=== PATIENT | female | born 1960 | race Caucasian/White ===

== ENCOUNTER 2019-12-25 10:16 | Observation (INO) ==
[2019-12-25 10:51] LABS: BASO# 0.03 X1000 (0.0-0.2); BASO% 0.5 % (0.0-0.8); EOS# 0.04 X1000 (0.0-0.7); EOS% 0.7 % (0.0-10.0); HEMATOCRIT 39.6 % (37.0-47.0); HEMOGLOBIN 13.6 g/dL (12.0-16.0); LYMPH# 1.53 X1000 (1.2-3.4); LYMPH% 27.2 % (20.5-51.1); MCH 31.6 PG (27-31); MCHC 34.3 g/dL (33-37); MCV 92.1 FL (81-99); MONO# 0.32 X1000 (0.11-0.59); MONO% 5.7 % (1.7-9.3); MPV 10.9 FL (7.4-10.4); NEUT# 3.71 X1000 (1.4-6.5); NEUT% 65.9 % (42.2-75.2); PLT 157 X1000 (130-400); RDW 11.8 % (11.5-14.5); WBC 5.63 X1000 (4.8-10.8)
[2019-12-25 10:56] LABS: URINE SOURCE CLEAN CATCH
[2019-12-25 10:58] LABS: BILIRUBIN URINE NEGATIVE (NEGATIVE); BLOOD URINE NEGATIVE (NEGATIVE); COLOR STRAW; GLUCOSE URINE >1000 mg/dL (NEGATIVE); KETONE URINE NEGATIVE (NEGATIVE); LEUKOCYTES URINE NEGATIVE (NEGATIVE); NITRITE URINE NEGATIVE (NEGATIVE); PH URINE 6.5; PROTEIN URINE NEGATIVE (NEGATIVE); SP GRAVITY URINE 1.032; TURBIDITY URINE CLEAR (CLEAR); UR EPITHELIAL CELLS <10 /HPF (<10); URINE BACTERIA NEGATIVE /HPF; URINE RBC <10 /HPF (<10); URINE WBC <10 /HPF (<10); UROBILINOGEN URINE NORMAL (NORMAL)
[2019-12-25 11:10] LABS: ACETONE SERUM NEGATIVE (NEGATIVE)
[2019-12-25] MEDS ORDERED: NS 1,000 ML IV ONE ×2 (11:11→13:31)
[2019-12-25] MEDS ORDERED: HUMULIN R SUBQ ONE (11:15)
--- NOTE | 2019-12-25 11:19 | PROVIDER DOCUMENTATION ---
HPI-General Adult - General Chief Complaint: High Blood Sugar Stated Complaint: BS HIGH Time Seen by Provider: 12/25/19 10:30 Source: patient, family () Allergies/Adverse Reactions: Patient Allergies Allergy/AdvReac Type Severity Reaction Status Date / Time No Known Allergies Allergy Verified 12/25/19 10:42 Home Medications: Home Medication List Medication Instructions Recorded Confirmed Last Taken Type Bisoprolol [Zebeta] 5 mg PO DAILY 12/25/19 12/25/19 Unknown History Clonazepam 1 tab PO QHS PRN 12/25/19 12/25/19 Unknown History Escitalopram [Lexapro] 10 mg PO DAILY 12/25/19 12/25/19 Unknown History Gabapentin 300 mg PO TID 12/25/19 12/25/19 Unknown History Imipramine Pamoate 75 mg PO DAILY 12/25/19 12/25/19 Unknown History Losartan Potassium 50 mg PO DAILY 12/25/19 12/25/19 Unknown History Simvastatin 20 mg PO DAILY 12/25/19 12/25/19 Unknown History Valacyclovir [Valtrex] 500 mg PO DAILY PRN 12/25/19 12/25/19 Unknown History - History of Present Illness -Gen Adult Nature of Presenting Problems: Patient is a 59yo F who presents, accompanied by , for evaluation of blood sugar. Patient reports she has been experiencing blurred vision over the past 2 weeks and was seen at her [facility] this morning who instructed her to come to ED for evaluation of blood sugar. Patient's states their [id number] has DM and patient went to her house and checked her BG, which read "HIGH." States they immediately came to ED. Patient reports intermittent nausea and fatigue. Denies fever, vomiting, abdominal pain, CP, or SOB. Denies past hx of DM. Location of Pain/Injury: reports: face, generalized Pain Radiation: reports: no radiation Quality of Pain: reports: aching Severity: reports: mild Onset/Duration: reports: other (2 weeks ago) Timing: reports: still present Context/Activities at Onset: reports: none Modifying Factors: improves with: nothing Associated Symptoms: reports: EENT symptoms, fatigue, nausea. denies: back/neck pain, fever/chills, shortness of breath, vomiting Similar Symptoms Previously?: No Recently seen or treated by another doctor?: Yes (seen by Optho this morning) - Diabetes Related Context Context: reports: high blood sugar Review of Systems - Adult - REVIEW OF SYSTEMS - ADULT Constitutional: reports: no symptoms reported. denies: chills, fever Eyes: reports: see HPI, blurred vision. denies: double vision Ears, Nose, Mouth & Throat: reports: no symptoms reported. denies: ear pain, throat pain Cardiovascular: reports: no symptoms reported. denies: chest pain, palpitations Respiratory: reports: no symptoms reported. denies: cough, shortness of breath Gastrointestinal: reports: see HPI, nausea. denies: abdominal pain, diarrhea, vomiting Genitourinary: reports: no symptoms reported Musculoskeletal: reports: no symptoms reported Integumentary: reports: no symptoms reported Neurological: reports: no symptoms reported Psychiatric: reports: no symptoms reported Endocrine: reports: see HPI, increased hunger, increased thirst, polyuria Past History - Adult - PAST MEDICAL HISTORY-ADULT Review of Records: reports: Nursing Assessment Review, Medications Reviewed - IMMUNIZATION STATUS Childhood Immunizations: See Nurse Assessment Flu Vaccine: See Nurse Assessment - FAMILY HISTORY Family History: reviewed, not pertinent Physical Exam-General - PHYSICAL EXAM-ADULT Initial Vital Signs Reviewed: Yes - CONSTITUTIONAL General Appearance: alert, mild distress. negative: lethargic, slow to respond, obtunded - EYES Eyes: PERRL/EOMI, pink conjunctivae. negative: EOM palsy, scleral icterus - HEAD, EARS, NOSE, MOUTH & THROAT HENMT: normocephalic/atraumatic, moist mucous membranes. negative: angioedema - NECK Neck: full range of motion, supple, normal inspection - RESPIRATORY Respiratory: chest non-tender, lungs clear, normal breath sounds, no pleuratic chest pain, no respiratory distress, no accessory muscle use. negative: crackles, rales, rhonchi, stridor, wheezing, retractions, splinting - CARDIOVASCULAR Cardiovascular: regular rate, rhythm - GASTROINTESTINAL (ABDOMEN) Abdominal Exam: normal bowel sounds, non tender, soft. negative: rigid, r ebound, tenderness - MUSCULOSKELETAL Back Exam: normal inspection Extremity: normal range of motion, normal gait - SKIN Integumentary: normal color, warm/dry. negative: cyanosis, jaundice, pallor - NEUROLOGIC Neurologic: grossly normal. negative: abnormal gait, aphasia, EOM palsy - PSYCHIATRIC Psych/Mental Status: normal mood/affect, normal thought content, normal thought process, oriented x 3 Progress - PLAN OF CARE/RESULTS Progress/Plan/Lab Results: Vital Signs - 8 hr 12/25/19 10:19 Temperature 97.8 F Pulse Rate 83 Respiratory Rate 19 Blood Pressure 157/96 O2 Sat by Pulse Oximetry 97 Laboratory Results - last 24 hr 12/25/19 12/25/19 12/25/19 10:35 10:35 10:50 WBC 5.63 RBC 4.30 Hgb 13.6 Hct 39.6 MCV 92.1 MCH 31.6 H MCHC 34.3 RDW Std Deviation 11.8 Plt Count 157 MPV 10.9 H Immature Gran % (Auto) 0.0 Neut % (Auto) 65.9 Lymph % (Auto) 27.2 Porter % (Auto) 5.7 Eos % (Auto) 0.7 Baso % (Auto) 0.5 Immature Gran # (Auto) 0.00 Neut # (Auto) 3.71 Lymph # (Auto) 1.53 Porter # (Auto) 0.32 Eos # (Auto) 0.04 Baso # (Auto) 0.03 POC Glucose Urine Source CLEAN CATCH Urine Color STRAW Urine Turbidity CLEAR Urine pH 6.5 Ur Specific Vici 1.032 Urine Protein NEGATIVE Ur Glucose (Stick) >1000 A Ur Ketones (Stick) NEGATIVE Urine Blood NEGATIVE Urine Nitrite NEGATIVE Urine Bilirubin NEGATIVE Urobilinogen Dipstick NORMAL Urine Leukocytes NEGATIVE Urine WBC (Auto) <10 Urine RBC (Auto) <10 U Epithel Cells (Auto) <10 Urine Bacteria (Auto) NEGATIVE Acetone Level NEGATIVE 12/25/19 11:00 WBC RBC Hgb Hct MCV MCH MCHC RDW Std Deviation Plt Count MPV Immature Gran % (Auto) Neut % (Auto) Lymph % (Auto) Porter % (Auto) Eos % (Auto) Baso % (Auto) Immature Gran # (Auto) Neut # (Auto) Lymph # (Auto) Porter # (Auto) Eos # (Auto) Baso # (Auto) POC Glucose 500 H Urine Source Urine Color Urine Turbidity Urine pH Ur Specific Vici Urine Protein Ur Glucose (Stick) Ur Ketones (Stick) Urine Blood Urine Nitrite Urine Bilirubin Urobilinogen Dipstick Urine Leukocytes Urine WBC (Auto) Urine RBC (Auto) U Epithel Cells (Auto) Urine Bacteria (Auto) Acetone Level Orders Category Date Time Status FSBS [Finger Stick Blood Sugar (ED)] DIRECTED Care 12/25/19 10:30 Active FSBS/Accucheck Result Q1H Care 12/25/19 11:16 Ordered Saline Loc NOW Care 12/25/19 10:30 Active Visual Acuity DIRECTED Care 12/25/19 10:54 Active A1C HGB W EST AVG GLUCOSE [CHEM] Stat Lab 12/25/19 11:14 Ordered ABG [RESP] Routine Lab 12/25/19 10:30 Ordered ACETONE SERUM [CHEM] Stat Lab 12/25/19 10:35 Results CBC WITH ELECTRONIC DIFF [HEME] Stat Lab 12/25/19 10:35 Completed CK PROFILE [SP CHEM] Stat Lab 12/25/19 10:35 Results COMPREHENSIVE METABOLIC PANEL [CHEM] Stat Lab 12/25/19 10:35 Results LIPASE [CHEM] Stat Lab 12/25/19 10:35 Results TROPONIN T HIGH SENSITIVITY Stat Lab 12/25/19 10:35 Received URINALYSIS W/POSS RFLX CULT [URINALYSIS] Stat Lab 12/25/19 10:50 Completed 0.9% Sodium Chloride Inj [Ns] 1,000 ml Med 12/25/19 11:11 Active IV 999 mls/hr Insulin Human Regular [Humulin R] Med 12/25/19 11:15 Once 10 unit SUBQ NOW ONE EKG [EKG] Stat Ther 12/25/19 10:30 Ordered Result Diagrams: 12/25/19 10:35 12/25/19 10:35 - REASSESSMENT Reassessment #1 Time Reassessed: 12:11 Reassessment Comment: Hosp paged for admission Reassessment #2 Time Reassessed: 11:55 Status: improving (I ALSO INTERVIEWED PT AND . NOT IN DKA. SUSPECT TYPE 1-RWS) - CONSULTS/PCP/HOSPITALIST Notification #1 *Consult/PCP/Hospitalist*: Golden Pablo Time Discussed: 12:13 Reason/Comments: New onset DM Consult Disposition: Will see in ED, Admit Departure - Departure Date of Disposition Decision: 12/25/19 Time of Disposition Decision: 12:13 DIAGNOSIS: Diabetes mellitus, new onset, Blurred vision, bilateral, Hyponatremia Disposition: ADMITTED INPATIENT 09 Certified Medical Emergency: Emergent Condition: Stable Referrals and Follow-Ups: Ishmael Pack MD [Primary Care Provider] - - Critical Care Note This patient required my direct & personal management of CC.: No Attestation - Physician/ JOHS Attestation Patient care was provided by Advanced Practice Provider:: Yes Advanced Practice Provider:: Italia Mendosa Advanced Practice Provider documentation review:: The Mid-level provider documentation, treatment plan and medical decision making was reviewed by the physician who agrees with all treatment and medical decision making by the MLP. The physician spent face to face time with patient:: Yes Advanced Practice Provider documentation review:: Supervising physician onsite and consulted in the evaluation and care of this patient. The physician did have a face to face encounter with the patient.
[2019-12-25 11:27] LABS: ALLEN TEST NO; BE -0.3 mmoll (-3.0-3.0); BLOOD TYPE ARTERIAL; HCO3-(ACT) 24.5 mmoll (20.0-26.0); METHB 1.1 % (0.0-1.5); O2(CT) 20.8 mL/dL (15.0-23.0); O2HB 92.4 % (95.0-99.0); PCO2(98.6) 33 mmHg (35-45); PO2(98.6) 65 mmHg (60-100); SAMPLE BLOOD; SAO2 95.6 % (95.0-100.0); pH(98.6) 7.45 (7.35-7.45)
[2019-12-25 11:27] LABS: AGAP 13; ALB/GLOB RATIO 1.7; ALBUMIN 4.3 g/dL (3.5-5.0); ALKALINE PHOSPHATASE 52 U/L (32-104); BUN 13 mg/dL (8-22); CALCIUM 9.2 mg/dL (8.8-10.2); CHLORIDE 90 mmol/L (98-107); CK PROFILE 67 U/L (24-173); COSMO 290; CREATININE 1.1 mg/dL (0.5-0.9); ESTIMATED GFR 51; GOT 31 U/L (10-30); GPT 44 U/L (10-36); LIPASE 60 U/L (13-60); POTASSIUM 4.7 mmol/L (3.5-5.1); SODIUM 127 mmol/L (136-145); TCO2 24 mmol/L (25-35); TOTAL BILIRUBIN 0.35 mg/dL (0.20-1.00); TOTAL PROTEIN 6.8 g/dL (6.3-8.3)
[2019-12-25 11:28] LABS: MODALITY ROOM AIR
[2019-12-25 11:32] LABS: GLUCOSE 716 mg/dL (70-104)
[2019-12-25] MEDS ORDERED: NS 1,000 ML ONE (12:43)
[2019-12-25 12:45] LABS: HEMOGLOBIN A1C 10.7 % (4.8-6.0)
[2019-12-25 12:51] LABS: MAGNESIUM 1.8 mg/dL (1.5-2.7); PHOSPHORUS 3.7 mg/dL (2.7-4.5)
[2019-12-25] MEDS ORDERED: VALTREX PO PRN (13:35)
[2019-12-25 14:18] LABS: AGAP 6; BUN 11 mg/dL (8-22); CALCIUM 8.9 mg/dL (8.8-10.2); CHLORIDE 96 mmol/L (98-107); COSMO 272; CREATININE 0.9 mg/dL (0.5-0.9); ESTIMATED GFR > 60; GLUCOSE 379 mg/dL (70-104); MAGNESIUM 1.8 mg/dL (1.5-2.7); PHOSPHORUS 2.6 mg/dL (2.7-4.5); POTASSIUM 3.9 mmol/L (3.5-5.1); SODIUM 128 mmol/L (136-145); TCO2 26 mmol/L (25-35)
[2019-12-25] MEDS: LOVENOX SUBQ SCH (15:53)
[2019-12-25] MEDS: HUMALOG SUBQ SCH ×2 (15:54→20:36)
[2019-12-25] MEDS: NS 1,000 ML IV SCH ×2 (15:58→22:42)
[2019-12-25] MEDS ORDERED: LANTUS INSULIN SUBQ ONE (16:30)
[2019-12-25] MEDS ORDERED: DIFLUCAN PO ONE (16:57)
[2019-12-25] MEDS ORDERED: NEURONTIN PO SCH (17:00)
[2019-12-25] MEDS: NEURONTIN PO SCH ×2 (17:19→18:33)
--- NOTE | 2019-12-25 17:59 | HISTORY AND PHYSICAL ---
CHIEF COMPLAINT: Blurry vision, dysuria, frequency. HISTORY OF PRESENT ILLNESS: This is a 59-year-old female with a history of autonomic dysfunction, gastroesophageal reflux disease, hyperlipidemia and neuropathy. She presents to the emergency room complaining of about a month of vision changes. She stated that she noticed this probably about a month ago and when it started she just had trouble with shadows. When she 1st noticed this she was having trouble reading words on the TV across the room. Over time symptoms have increased, over the last 2 weeks she has had increasing blurred vision with some shadowing. She saw an facility practice specialist this morning who told them he thought this could be a blood sugar related. She went to a family member's house, checked her blood sugar, the meter read high, therefore she came to the emergency room where she was found to have a blood glucose of 716 and hemoglobin A1c of 10. PAST MEDICAL HISTORY: Autonomic dysfunction, gastroesophageal reflux disease, neuropathy, hyperlipidemia. PAST SURGICAL HISTORY: Cholecystectomy and hysterectomy. SOCIAL HISTORY: She denies any alcohol, tobacco, or illicit drug use. She is , lives with her . ALLERGIES: No known drug allergies. HOME MEDICATIONS: Zebeta, Klonopin, Lexapro, gabapentin, imipramine, losartan, simvastatin and Valtrex. REVIEW OF SYSTEMS: Discussed with patient with pertinent positives stated in the HPI. She denied any syncope or dizziness, any chest pain or palpitations, any vomiting, diarrhea, constipation, black or bloody vomitus or stools any hematuria. PHYSICAL EXAMINATION: GENERAL: This is a very pleasant 59-year-old female who is lying on the stretcher in the emergency room in no distress. VITAL SIGNS: Blood pressure is 157/96 with a heart rate of 83, respirations are 19, temperature is 97.8 degrees with room air saturations 97%. HEENT: Head is normocephalic, atraumatic. Mucous membranes are moist. Pupils equal, round, react to light. EOMs are intact. Sclerae are anicteric. NECK: Supple. Trachea midline. CARDIOVASCULAR: Regular rate and rhythm. S1 and S2 are appreciated. She has no lower extremity edema. Peripheral pulses are palpable x4 extremities. PULMONARY: Breath sounds are clear with no increased work of breathing noted. Chest rises falls symmetric respiration. GASTROINTESTINAL: Abdomen soft, nontender, nondistended. Bowel sounds in all 4 quadrants. NEUROLOGIC: She is alert, oriented x3. SKIN: Warm and dry. LABS: WBC is 5.6 with hemoglobin 13.6, hematocrit 39.6 and platelets of 157,000. Sodium 127, potassium 4.7, CO2 is 24 with an anion gap of 13, BUN 13 with a creatinine 1.1. Blood glucose is 716. Hemoglobin A1c is 10.7. Urinalysis is negative except for greater than 1000 glucose. Acetone is negative. ASSESSMENT AND PLAN: 1. New diagnosis of diabetes mellitus with hyperglycemia. 2. Hyponatremia. 3. Blurred vision. 4. History of autonomic dysfunction. 5. Peripheral neuropathy. 6. Hypertension. 7. Depression. PLAN: The patient will be admitted to the hospital. She will be placed on telemetry. We will continue with IV hydration, checking blood sugars every 2 hours, now she is down to 300s, cover with of sliding scale insulin. Will recheck a BMP, magnesium and phosphorus now. Check a CBC, CMP, mag and phos in the morning. We will continue her home medications. For DVT prophylaxis will use Lovenox. For GI prophylaxis Prilosec. Further treatments pending hospital course. Dictated by DIAMOND Mesa for Matias Flood MD cc: DIAMOND Mesa MD
[2019-12-25] MEDS: ZOCOR PO SCH (20:35)
--- NOTE | 2019-12-25 21:04 | HISTORY AND PHYSICAL ---
ADDENDUM: I have seen and examined Ms. Tolentino this morning. Ms. Tolentino refers to have been feeling remarkably weaker for the past couple of weeks, excessive thirst and polyuria. She also complains to have blurry vision to the extent that yesterday she was not able to see her granddaughter. She went to the eye doctor this morning and she was referred to come to the emergency room because of elevated glucose. At the emergency room she was evaluated. Initial vital signs were for the most part within normal range, except for slight hypertension; however, her glucose was found to be 716 with A1c of 10.7. She has been admitted for severe uncontrolled newly diagnosed diabetes mellitus. Her physical exam for the most part is fairly unremarkable. She does have some neuropathic pain in the lower extremities, but her lungs are clear. Cardiovascular: Regular rate and rhythm. Abdomen is soft. I have reviewed her laboratory data. Current sodium is 128, potassium is 3.9, chloride 96, bicarbonate is 26, glucose is 279. CBC was unremarkable. ASSESSMENT AND PLAN: 1. Newly diagnosed diabetes mellitus with presenting A1c of 10.7. The patient has been started on adequate fluid resuscitation, long-acting insulin with glargine and sliding scale. We will monitor this overnight and make changes to the medications accordingly. 2. Peripheral neuropathy of unclear etiology. The patient is already on gabapentin and imipramine at home. 3. History of dysautonomia. 4. Uncontrolled hypertension. The patient has been started back on her home medications. I have discussed my findings and plans with Ms. Tolentino, and she voiced understanding. All her questions and concerns have been addressed. Please refer to the details of the history and physical that has been dictated by the DRIVER MEDIC in the chart. I have discussed the plan with her. cc: Matias Flood MD
[2019-12-25] MEDS: KLONOPIN PO PRN ×2 (21:36→21:41)
[2019-12-25] MEDS: TOFRANIL PO SCH (21:36)
[2019-12-26] MEDS: NS 1,000 ML IV SCH ×3 (05:25→19:23)
[2019-12-26] MEDS: PRILOSEC PO SCH (06:28)
[2019-12-26] MEDS: HUMALOG SUBQ SCH ×6 (06:28→20:26)
[2019-12-26 07:56] LABS: BASO# 0.01 X1000 (0.0-0.2); BASO% 0.2 % (0.0-0.8); EOS# 0.07 X1000 (0.0-0.7); EOS% 1.6 % (0.0-10.0); HEMATOCRIT 38.3 % (37.0-47.0); LYMPH# 1.57 X1000 (1.2-3.4); LYMPH% 36.5 % (20.5-51.1); MCH 31.1 PG (27-31); MCHC 33.9 g/dL (33-37); MCV 91.6 FL (81-99); MONO# 0.23 X1000 (0.11-0.59); MONO% 5.3 % (1.7-9.3); MPV 10.6 FL (7.4-10.4); NEUT# 2.42 X1000 (1.4-6.5); NEUT% 56.4 % (42.2-75.2); PLT 161 X1000 (130-400); RBC 4.18 XMIL (4.2-5.4); RDW 11.9 % (11.5-14.5)
[2019-12-26 08:17] LABS: AGAP 9; BUN 9 mg/dL (8-22); CALCIUM 8.8 mg/dL (8.8-10.2); CHLORIDE 104 mmol/L (98-107); COSMO 281; CREATININE 0.9 mg/dL (0.5-0.9); ESTIMATED GFR > 60; GLUCOSE 211 mg/dL (70-104); MAGNESIUM 1.7 mg/dL (1.5-2.7); PHOSPHORUS 2.6 mg/dL (2.7-4.5); SODIUM 138 mmol/L (136-145); TCO2 25 mmol/L (25-35)
[2019-12-26] MEDS: ZOFRAN IV PRN ×2 (09:27→20:16)
[2019-12-26] MEDS: TYLENOL PO PRN (09:27)
[2019-12-26] MEDS: ZEBETA PO SCH (09:28)
[2019-12-26] MEDS: LEXAPRO PO SCH (09:28)
[2019-12-26] MEDS: COZAAR PO SCH (09:28)
[2019-12-26] MEDS: LANTUS INSULIN SUBQ SCH (09:28)
[2019-12-26] MEDS ORDERED: MAXALT MLT PO ONE (11:08)
[2019-12-26] MEDS: LOVENOX SUBQ SCH (16:33)
[2019-12-26] MEDS: NEURONTIN PO SCH ×3 (16:33→18:21)
--- NOTE | 2019-12-26 17:41 | PROGRESS NOTE ---
DATE: 12/26/2019 SUBJECTIVE: This morning Ms. Tolentino refers to be doing a lot better. She said she had a mild headache and some nauseation but for the most part she feels stronger. She has not been as thirsty and as polyuric as before. Her was at the bedside at the time of the encounter. OBJECTIVE: Vital signs: Blood pressure is 131/84, pulse of 69, respiration is 18, temperature is 98.8 degrees. General: Ms. Tolentino is a 59-year-old female. She is in bed, no distress. HEENT: Mucosa is pink and moist. Anicteric. Acyanotic. Neck: Supple. Chest: Good air entry bilaterally. There were no crepitations and no rhonchi. Cardiovascular: Regular rate and rhythm. No murmurs. No rubs. No gallops. GI: Abdomen is soft, nontender. Bowel sounds present. Extremities: No pedal edema. CLIENT SERVICES REPRESENTATIVE: Patient is awake, alert, and oriented. There is no focal deficit. LABORATORY DATA: Glucose is 211. ASSESSMENT: 1. Newly diagnosed diabetes mellitus type 2 with a presenting A1c of 10.7. Patient continues to be on insulin regimen. Dietitian will be consulted and patient will be also referred to follow up with diabetic education at [facility]. 2. Peripheral neuropathy of unclear etiology. This was long before patient was even diagnosed with diabetes. She was on gabapentin. 3. History of dysautonomia. 4. Uncontrolled hypertension. Improved. 5. History of migraine. 6. Priscilla vaginitis, likely from uncontrolled glucose. The patient was treated with a dose of Diflucan yesterday. cc: Matias Flood MD MTDD
[2019-12-26] MEDS: TOFRANIL PO SCH (20:16)
[2019-12-26] MEDS: KLONOPIN PO PRN (20:16)
[2019-12-26] MEDS: ZOCOR PO SCH (20:16)
[2019-12-27] MEDS: TYLENOL PO PRN (01:21)
[2019-12-27] MEDS: NORCO-7.5 PO PRN ×3 (01:47→12:16)
[2019-12-27] MEDS: ZOFRAN IV PRN ×3 (01:49→12:16)
[2019-12-27] MEDS: NS 1,000 ML IV SCH (04:34)
[2019-12-27] MEDS: PRILOSEC PO SCH (06:29)
[2019-12-27] MEDS: HUMALOG SUBQ SCH ×4 (06:30→12:11)
[2019-12-27] MEDS: LEXAPRO PO SCH (08:35)
[2019-12-27] MEDS: COZAAR PO SCH (08:35)
[2019-12-27] MEDS: ZEBETA PO SCH (08:35)
[2019-12-27] MEDS: LANTUS INSULIN SUBQ SCH (08:39)
[2019-12-27] MEDS ORDERED: LANTUS INSULIN SUBQ SCH (09:00)
[2019-12-27 11:46] VITALS: BP 161/83
[2019-12-27] MEDS ORDERED: DEPO-MEDROL MISC ONE (12:12)
[2019-12-27] MEDS ORDERED: XYLOCAINE 1% INJ ONE (12:13)
[2019-12-27] MEDS ORDERED: MARCAINE 0.25% INJ ONE (12:14)
--- NOTE | 2019-12-27 12:53 | Diag Imaging Result Doc PS360 ---
EXAM: SHOULDER-RIGHT 12/27/2019 HISTORY: right shoulder pain TECHNIQUE: Right shoulder two views COMMENT: There is no evidence of fracture or dislocation periosteal reaction or erosion. There is mild degenerative change in the acromioclavicular joint. IMPRESSION: Minimal osteoarthritis. Electronically signed by Erwin Hernández 12/27/2019 12:51 PM
[2019-12-27] MEDS ORDERED: SODIUM CHLORIDE 0.9% INJ ONE (14:24)
[2019-12-27] MEDS ORDERED: PHENERGAN IV ONE (14:24)
--- NOTE | 2019-12-27 14:31 | ORTHOPAEDICS CONSULTATION ---
DATE: 12/27/2019 CHIEF COMPLAINT: Right shoulder pain. HISTORY OF PRESENT ILLNESS: This is a 59-year-old female with a history of autonomic dysfunction, GERD, hyperlipidemia, neuropathy, and now diabetes mellitus. She presented to the emergency department with complaints of vision changes. She said this has been going on for about a month. It was found in the emergency department that her blood glucose was 716, and her hemoglobin A1c was 10. She reports that about a year ago she hurt her right shoulder when she got tripped up on the stairs. She states it has recently became more painful and unable to use it like she should PAST MEDICAL HISTORY: Includes autonomic dysfunction, GERD, neuropathy, hyperlipidemia, diabetes mellitus. PAST SURGICAL HISTORY: Cholecystectomy, hysterectomy. SOCIAL HISTORY: The patient denies alcohol, tobacco, or illicit drug use. ALLERGIES: She has no known drug allergies. HOME MEDICATIONS: The patient reports that she takes Zebeta, Klonopin, Lexapro, gabapentin, imipramine, losartan, simvastatin, and Valtrex. She does not know the dosages. REVIEW OF SYSTEMS: A 14-point review of systems was performed. Pertinent positives listed in the HPI. PHYSICAL EXAMINATION: General: The patient is awake and alert, sitting on the bed in no acute discomfort. Vital Signs: Temperature 98.6 degrees, pulse rate 64, respiratory rate 14, blood pressure is 161/83, oxygen saturation is 100% on room air. HEENT: Head is atraumatic, normocephalic. Eyes are equal, round, and reactive. Neck: Supple. Cardiovascular: Regular rate and rhythm. Abdomen: Soft and nontender. Extremities: There is some decreased range of motion to the right upper extremity due to pain. There is decreased rotator cuff strength. There is tenderness near the right deltoid muscle around the bursa. There is a negative Speed test. There is 4/5 command and control officer strength to the right hand. LABORATORY DATA: White blood cells 4.3, hemoglobin 13, hematocrit 38.3, platelets 161,000. Sodium 138, potassium 4.0, chloride 104, BUN 9, creatinine 0.9, glucose 238. Urine was positive for greater than 1000 glucose on 12/25/2019. ASSESSMENT: Diabetes mellitus with hyperglycemia, right shoulder pain with possible rotator cuff injury and bursitis. PLAN: Will plan to do an intra-articular injection of Depo-Medrol into the right shoulder. She will need to follow up with us in the clinic, and if she does not improve, she will need an MRI of the right shoulder. Will check back on her later and see how she is doing. Dictated by DIAMOND Barron for Jamarcus Farley MD cc: DIAMOND Barron MD MTDD
--- NOTE | 2019-12-27 18:25 | OPERATIVE NOTE ---
PROCEDURE DATE: PROCEDURE NOTE IN DETAIL: The right shoulder was prepped in sterile fashion with Betadine. A 20- gauge needle was inserted into the right subacromial space and Depo-Medrol 80 mg along with lidocaine 1%, 4 mL of Marcaine 0.25%, 4 mL was injected into the right shoulder. Approximately 1 mL blood loss. The patient tolerated the procedure well. There were no complications. Dictated by DIAMOND Barron for Iglesia Whitley MD cc: DIAMOND Barron MD
--- NOTE | 2019-12-28 08:20 | DISCHARGE SUMMARY ---
ADMISSION DATE: 12/25/2019 DISCHARGE DATE: 12/27/2019 DISPOSITION: Home. FOLLOWUP: 1. Dr. Ishmael Pack. 2. Dr. Farley. 3. Ms. Zita Silva. CONSULTATION DURING THIS ADMISSION: Orthopedics was consulted. Patient was seen by Dr. Farley. INVASIVE PROCEDURES DONE DURING THIS ADMISSION: Left shoulder steroid injection was done. IMAGING STUDIES OF SIGNIFICANCE: A right shoulder x-ray showed minimal osteoarthritis. ADMISSION DIAGNOSES: 1. Newly diagnosed diabetes mellitus with hyperglycemia. 2. Hyponatremia. 3. Blurry vision. 4. History of autonomic dysfunction. 5. Hypertension. DIAGNOSES AT THE TIME OF DISCHARGE: 1. Newly diagnosed diabetes mellitus type 2 with a presenting A1c of 10.7. 2. Peripheral neuropathy of unclear etiology. 3. History of dysautonomia. 4. Uncontrolled hypertension, improved. 5. History of migraine. 6. Priscilla vaginitis. 7. Right shoulder pain likely due to osteoarthritis and possible rotator cuff injury and bursitis. The patient was evaluated by Orthopedics and was given an intra- articular injection. DISCHARGE MEDICATIONS: 1. 0.5 mg p.o. p.r.n. 2. Lexapro 10 mg p.o. daily. 3. Imipramine 75 mg p.o. at bedtime. 4. Losartan 50 mg p.o. daily. 5. Simvastatin 20 mg p.o. at bedtime. 6. Valacyclovir 500 p.o. p.r.n. 7. Bisoprolol 5 mg p.o. daily. 8. Gabapentin 300 three times per day. 9. Rizatriptan 10 mg p.o. p.r.n. 10. Omeprazole 40 mg p.o. daily. 11. Glargine 35 units subcutaneously q.a.m. 12. Zofran 4 mg p.o. q.6 p.r.n. 13. Metformin 500 b.i.d. 14. Colace 1 tablet b.i.d. PRESENTING COMPLAINT: Blurry vision, dysuria. HISTORY OF PRESENTING COMPLAINT: Ms Tolentino, a 59-year-old female with a history of autonomic dysfunction, GERD, dyslipidemia, neuropathy, came to the emergency department because of blurry vision, went to the oceanographer assistant and was found to have elevated glucose, was sent to the emergency room for management. Ms Tolentino was seen in the ER, was evaluated. Initial workup revealed a blood glucose of 760. She was remarkably dehydrated but was not in DKA nor HONK. She was admitted to the medical floor for further management. HOSPITAL COURSE: Ms Tolentino was admitted to the medical floor, was started on adequate fluid resuscitation and was started on insulin regimen. She did improve throughout her hospital course. Glucose got better control. This morning, a recheck prior to discharge was 161. Ms. Tolentino also did complain of mild dysuria and some itching in her vagina which we interpreted it to be Priscilla vaginitis as a result of diabetes mellitus. She was given a dose of Diflucan which got this improved. During the hospital course, Ms Tolentino also complained of right shoulder pain. A x-ray of the shoulder did show mild osteoarthritis. Orthopedics was consulted. They thought that she could potentially have a rotator cuff injury and bursitis. An intra-articular steroid injection was done, after which she felt a lot of relief. We think Ms. Tolentino is clinically stable to be discharged. At the time of the discharge, her blood pressure is 161/83, pulse of 64, respiration is 14, temperature 98.6 degrees. Patient is saturating 100% on room air. DISCHARGE INSTRUCTIONS: All the discharge instructions have been discussed with her. She voiced understanding. Ms. Tolentino is supposed to follow up with Ms Zita Silva, the dietitian at [place] for diabetic education. TIME SPENT FOR DISCHARGE: 38 minutes. cc: MD Ishmael Carney MD Dr. Scott Ms. Sherry Pastor MTDD
== END 2019-12-27 16:38 | disposition home or self-care (01) ==
LOC: ED 10:16 → INTOOBSV 14:31 → EDIPHOLD 14:31 → 3N 16:17
PROVIDERS: ATTEND Internal Medicine